=== PATIENT | female | born 1995 | race Hispanic/Latino ===

== ENCOUNTER 2023-12-16 15:03 | Inpatient (IN) | payer OTHER ==
[~2023-12-16] VITALS: Ht 160 cm; Wt 95.3 kg
[2023-12-16] MEDS ORDERED: CALCIUM CARBONATE 500 MG CHEW PO PRN ×2 (15:15→23:30)
[2023-12-16] MEDS ORDERED: LACTATED RINGER'S 1,000 ML IV SCH (15:15)
[2023-12-16] MEDS ORDERED: ondansetron HCL 4 MG/2 ML VIAL IV PRN (15:15)
[2023-12-16] MEDS ORDERED: MAGNESIUM HYDROXIDE/AL HYDROX 30 ML CUP PO PRN ×2 (15:15→23:30)
[2023-12-16] MEDS ORDERED: PENICILLIN G POTASSIUM 5 MUNITS/110 ML PIGGYBACK IV ONE (15:15)
[2023-12-16] MEDS ORDERED: OXYTOCIN/0.9 % SODIUM CHLORIDE 30 UNITS/500 ML BAG IV SCH (15:15)
[2023-12-16 15:48] LABS: HEMATOCRIT 38.6 % (35.0-50.0); HEMOGLOBIN 13.1 g/dL (12.0-18.0); MCH 29.3 (27-36); MCHC 33.9 g/dl (30-36); MCV 86.4 fl (81-99); RBC 4.47 M/ul (4.3-5.7); RDW 14.1 (10.5-15.0)
[2023-12-16 15:58] LABS: AMPHETAMINES, URINE NEGATIVE (NEGATIVE); BARBITURATES, URINE NEGATIVE (NEGATIVE); BENZODIAZEPINE, URINE NEGATIVE (NEGATIVE); BUPRENORPHINE, URINE NEGATIVE (NEGATIVE); CANNABINOID, URINE NEGATIVE (NEGATIVE); COCAINE, URINE NEGATIVE (NEGATIVE); ECSTASY, URINE NEGATIVE (NEGATIVE); FENTANYL, URINE NEGATIVE (NEGATIVE); METHADONE, URINE NEGATIVE (NEGATIVE); OPIATES, URINE NEGATIVE (NEGATIVE); OXYCODONE, URINE NEGATIVE (NEGATIVE); PHENCYCLIDINE, URINE NEGATIVE (NEGATIVE)
[2023-12-16] MEDS ORDERED: fentaNYL citrate 100 MCG/2 ML VIAL ONE (16:13)
[2023-12-16] MEDS ORDERED: ROPIVACAINE 0.2% 200 ML BAG ONE (16:13)
[2023-12-16] MEDS ORDERED: ePHEDrine sulfate 5 MG/ML SYRINGE IV PRN (16:15)
[2023-12-16] MEDS ORDERED: ROPIVACAINE 0.2% 200 ML BAG EPIDURAL SCH (16:15)
[2023-12-16] MEDS ORDERED: LACTATED RINGER'S 500 ML IV PRN (16:15)
[2023-12-16] MEDS ORDERED: LACTATED RINGER'S 2,000 ML IV ONE (16:15)
[2023-12-16 16:20] LABS: ABO A; RH POSITIVE
[2023-12-16 16:21] LABS: ANTIBODY SCREEN NEGATIVE
[2023-12-16 16:47] VITALS: BP 125/71
[2023-12-16] MEDS ORDERED: PENICILLIN G POTASSIUM 2.5 MUNITS in DEXTROSE 5% 100 ML IV SCH (20:00)
--- NOTE | 2023-12-16 21:10 | PR ---
[facility] [address], [place] [address] Signed Progress Notes IP Datetime Report Generated by CPN: 12/16/2023 21:10 PROGRESS NOTES: [id number] Impression: Normal Progression of Labor; Reassuring Heart Rate Procedures: Artificial ROM Plan: Continue Present Management; Anticipate Vaginal Delivery Informed Consent Obtain: Vaginal Delivery VITAL SIGNS: [id number] Vital Signs: Reviewed; Within Normal Limits EXAM: [id number] Dilatation: 9.0 Effacement: 100 Station: -2 Contractions: q 3-4 MEMBRANES: [id number] Comments: Pt seen and examined. While confirming vertex well applied, membranes ruptured and thick meconium fluid noted. Discussed meconium and management in labor and delivery. Will allow patient to labor down and will monitor closely. All questions answered. FETUS A: [id number] FHR Baseline: 160 Variability: Moderate 6-25bpm Accelerations: 15X15 Decelerations: Variable FHR Category: Category II Presentation: Vertex Comments on Fetus A: No evidence of metabolic acidosis FETUS B: [id number] Signing Physician: Chuyita Cardona DO Copies: ~ *Electronically Signed* 12/16/232109 CHUYITA CARDONA (OLVIN) DO PATIENT NAME: NATALIE THOMAS PROGRESS NOTE DATE OF : 95 PHYSICIAN: CHUYITA CARDONA (JD) DO RPT #: [id number] REPORT IS CONFIDENTIAL AND NOT TO BE RELEASED WITHOUT AUTHORIZATION
--- NOTE | 2023-12-16 22:29 | PR ---
[facility] [address] [place], [place] [address] Signed Progress Notes IP Datetime Report Generated by CPAbdi: 12/16/2023 22:29 PROGRESS NOTES: [id number] Impression: Normal Progression of Labor; Reassuring Heart Rate Procedures: Intrauterine Pressure Catheter; Scalp Electrode; Sterile Vag Exam Plan: Continue Present Management; Anticipate Vaginal Delivery Informed Consent Obtain: Vaginal Delivery VITAL SIGNS: [id number] Vital Signs: Reviewed; Within Normal Limits EXAM: [id number] Dilatation: 9.0 Effacement: 90 Station: -1 Contractions: q 2 min MEMBRANES: [id number] Comments: Pt seen and examined. Doing well. Comfortable w/ epidural. Some swelling of cervix noted but appears to be reducible. Baby lower in pelvis and pt feeling some pressure. IUPC and FSE placed after verbal consent. Will monitor and consider pitocin augmentation if indicated. Anticipate soon FETUS A: [id number] FHR Baseline: 160 Variability: Moderate 6-25bpm Accelerations: 15X15 Decelerations: None FHR Category: Category I Presentation: Vertex Comments on Fetus A: No evidence of metabolic acidosis FETUS B: [id number] Signing Physician: Chuyita Cardona DO Copies: ~ *Electronically Signed* 12/16/23 0172 CHUYITA CARDONA (OLVIN) DO PATIENT NAME: NATALIE THOMAS PROGRESS NOTE DATE OF : 95 PHYSICIAN: CHUYITA CARDONA (JD) DO RPT #: [id number] REPORT IS CONFIDENTIAL AND NOT TO BE RELEASED WITHOUT AUTHORIZATION
[2023-12-16] MEDS ORDERED: HYDROCODONE/ACETA 5/325 TAB PO PRN (23:30)
[2023-12-16] MEDS ORDERED: IBUPROFEN 600 MG TAB PO PRN (23:30)
[2023-12-16] MEDS ORDERED: OXYCODONE/APAP 5/325 TAB PO PRN (23:30)
[2023-12-16] MEDS ORDERED: OXYTOCIN/0.9 % SODIUM CHLORIDE 500 ML IV SCH (23:30)
[2023-12-16] MEDS ORDERED: OXYCODONE HCL 5 MG TAB PO PRN (23:30)
[2023-12-16] MEDS ORDERED: BENZOCAINE 60 ML AEROSOL TOP PRN (23:30)
[2023-12-16] MEDS ORDERED: MAGNESIUM HYDROXIDE 30 ML UDC PO PRN (23:30)
[2023-12-16] MEDS ORDERED: ACETAMINOPHEN 325 MG TAB PO PRN (23:30)
[2023-12-16] MEDS ORDERED: HYDROCORTISONE ACETATE 25 MG SUPP PR PRN (23:30)
[2023-12-16] MEDS ORDERED: WITCH HAZEL/GLYCERIN 1 EA PAD TOP PRN (23:30)
[2023-12-17 05:33] LABS: HEMATOCRIT 36.4 % (35.0-50.0); HEMOGLOBIN 12.3 g/dL (12.0-18.0); MCH 29.4 (27-36); MCHC 33.9 g/dl (30-36); MCV 86.8 fl (81-99); RBC 4.19 M/ul (4.3-5.7); RDW 14.3 (10.5-15.0)
[2023-12-17] MEDS ORDERED: SENNOSIDES/DOCUSATE 1 EA TAB PO SCH (09:00)
== END 2023-12-18 13:25 | disposition home or self-care (01) | DRG 807 ==
LOC: FBCO 15:03 → FBC 15:11
PROVIDERS: Obstetrics & Gynecology; ADMIT Obstetrics & Gynecology; ATTEND Obstetrics & Gynecology
PROC: 10E0XZZ Delivery of Products of Conception, External Approach (ICD-10-PCS; principal; 2023-12-16)
PROC: 10H07YZ Insertion of Other Device into Products of Conception, Via Natural or Artificial Opening (ICD-10-PCS; 2023-12-16)
PROC: 3E0R3BZ Introduction of Anesthetic Agent into Spinal Canal, Percutaneous Approach (ICD-10-PCS; 2023-12-16)
PROC: 00HU33Z Insertion of Infusion Device into Spinal Canal, Percutaneous Approach (ICD-10-PCS; 2023-12-16)
DX: O99.824 Streptococcus B carrier state complicating childbirth (principal); Z37.0 Single live birth; O76 Abnormality in fetal heart rate and rhythm complicating labor and delivery; Z3A.38 38 weeks gestation of pregnancy; O77.0 Labor and delivery complicated by meconium in amniotic fluid
CPT/HCPCS: 01960; 36415; 80307; 85027; 86850; 86900; 86901; A9270; J2540; J7121